=== PATIENT | female | born 1975 | race Hispanic/Latino ===

== ENCOUNTER 2017-07-26 14:51 | Outpatient (CLI) | payer OTHER | END 2017-07-26 14:52 | disposition home or self-care (01) | LOC: BICMAMMO 14:51 | PROVIDERS: ATTEND Physician Assistant | DX: Z12.31 Encounter for screening mammogram for malignant neoplasm of breast (principal); Z85.3 Personal history of malignant neoplasm of breast | CPT/HCPCS: 77063; 77067 ==

== ENCOUNTER 2017-12-15 07:18 | Day surgery (SDC) | payer OTHER ==
[~2017-12-15 07:18] MED LIST: Cyclopentolate 1% Opth Drop 2 ML BOT FS SCH; Fluorouracil 100 MG, EPINEPHrine 0.3 MG, Dextrose 50% 3 ML in Ophthalmic Irrigation Sol... FS SCH; Phenylephrine 2.5% Ophth Soln 5 ML BOT FS SCH
[2017-12-15] MEDS ORDERED: Cyclopentolate 1% Opth Drop 2 ML BOT ONE (07:48)
[2017-12-15] MEDS ORDERED: Phenylephrine 2.5% Ophth Soln 5 ML BOT ONE (07:48)
[2017-12-15] MEDS ORDERED: Insulin Regular 300 UNITS/3 ML VIAL ONE (08:34)
[2017-12-15] MEDS ORDERED: Fentanyl 100 MCG/2 ML VIAL ONE (09:11)
[2017-12-15] MEDS ORDERED: PROPOFOL 20 ML ONE (09:11)
[2017-12-15] MEDS ORDERED: Midazolam HCl 2 mg/2 ml Vial ONE (09:11)
[2017-12-15] MEDS ORDERED: Ondansetron HCl/PF 4 MG/2 ML Vial ONE (09:11)
--- NOTE | 2017-12-15 11:19 | OP ---
DATE OF PROCEDURE: 12/15/2017 PREOPERATIVE DIAGNOSIS: Tractional retinal detachment, right eye. POSTOPERATIVE DIAGNOSIS: Tractional retinal detachment, right eye. PROCEDURE: Pars plana vitrectomy, tractional retinal tear, right eye. SURGEON: Dr. Jacinto Rojas ANESTHESIA: Local with monitored anesthesia care. PROCEDURE IN DETAIL: The patient was identified in the preoperative holding area. Appropriate infor med consent for the planned surgical procedure on the right eye had been obtained. The patient was t ransported to the operative suite where appropriate cardiopulmonary monitoring established. Local an esthesia was obtained using retrobulbar and modified Van Lint lid block using 50 to give mixture of 4 % lidocaine, 0.75% bupivacaine. The patient was prepped and draped in the usual sterile manner for o phthalmic surgery on the right eye. Lid speculum was placed in the right eye. The 25-gauge trocars placed in conjunctiva and sclera supratemporally, inferotemporally, and supranasally. Infusion line was placed inferotemporally. Light pipe and vitreous cutter were inserted into the eye. Core vitrec sima was performed. Extensive elevation of the retina was identified. This was caused by traction o n the retinal surface from epiretinal membranes. These were carefully dissected away from the retina using end-gripping forceps and vitreous cutter clearing the entire posterior pole. No holes were id entified. Panretinal photocoagulation was placed into all non-macular areas of the retina. Trocars were removed. The eye was noted to retain pressure well. Retrobulbar Kenalog and subconjunctival An cef were placed. Atropine and antibiotic ointment placed, and the eye was patched and shielded. The patient was taken to the postoperative recovery unit in good condition having suffered no immediate perioperative period. DISCHARGE INSTRUCTIONS: The patient was instructed to keep patch and shield on, avoid lifting or tiffanie ding, and follow up in the morning with Dr. Rojas.
== END 2017-12-15 12:30 | disposition home or self-care (01) ==
LOC: SDC 07:18
PROVIDERS: ATTEND Ophthalmology Retina Specialist
PROC: 08T43ZZ Resection of Right Vitreous, Percutaneous Approach (ICD-10-PCS; principal; 2017-12-15)
DX: H33.42 Traction detachment of retina, left eye (principal); E11.9 Type 2 diabetes mellitus without complications; Z79.4 Long term (current) use of insulin; Z79.899 Other long term (current) drug therapy
CPT/HCPCS: 36416; 96372; J0171; J1815; J2250; J2405; J2704; J3010; J9190

== ENCOUNTER 2018-01-31 13:51 | Emergency (ER) | payer OTHER ==
[2018-01-31 15:14] LABS: #Basophils 0.1 thou/uL (0.0-0.2); #Eosinphils 0.2 thou/uL (0.0-0.7); #Lymphocytes 1.6 thou/uL (1.20-3.40); #Monocytes 0.5 thou/uL (0.11-0.59); #Neutrophils 7.1 thou/uL (1.40-6.50); %Basophils 0.6 % (0.0-1.0); %Eosinophils 1.9 % (0.0-10.0); %Monocytes 4.8 % (0.0-10.0); %Neutrophils 75.7 % (42.0-75.0); Hemoglobin 12.3 g/dL (12.0-16.0); Mean Corpuscular HGB CONC 32.8 g/dL (32.0-36.0); Mean Corpuscular Hemoglobin 31.7 pg (27.0-31.0); Mean Corpuscular Volume 96.6 fL (78.0-98.0); Mean Platelet Volume 8.5 fL (7.4-10.4); Platelet Count 540 thou/uL (130-400); RBC Distribution Width 11.7 % (11.5-14.5); Red Blood Cell (RBC) Count 3.88 mill/uL (4.20-5.40); White Blood Cell (WBC) Count 9.3 thou/uL (4.8-10.8)
[2018-01-31] MEDS ORDERED: Metoclopramide HCl 10 MG/2 ML VIAL ONE (15:19)
[2018-01-31] MEDS ORDERED: Ketorolac Tromethamine 30 MG/ML VIAL ONE (15:19)
[2018-01-31] MEDS ORDERED: diphenhydrAMINE 25 MG CAP ONE (15:24)
[2018-01-31 15:32] LABS: ALT (SGPT) 20 U/L (8-55); AST (SGOT) 17 U/L (5-34); Albumin 3.3 g/dL (3.5-5.0); Alkaline Phosphatase 73 U/L (40-150); Anion Gap 9 mmol/L (10-20); BUN (Urea Nitrogen) 17 mg/dL (7.0-18.7); Bilirubin, Total 0.9 mg/dL (0.2-1.2); Calc. Creatinine Clearance 0 mL/min (70-130); Calcium 9.4 mg/dL (7.8-10.44); Carbon Dioxide 27 mmol/L (22-29); Chloride 108 mmol/L (98-107); Estimated GFR-MDRD 50; Globulin 3.4 g/dL (2.4-3.5); Glucose 211 mg/dL (70-105); Potassium 3.9 mmol/L (3.5-5.1); Protein, Total 6.7 g/dL (6.0-8.3); Sodium 140 mmol/L (136-145)
[2018-01-31] MEDS ORDERED: Magnesium 2 GM/50 ML BAG (IN WATER) ONE (16:57)
== END 2018-01-31 19:10 | disposition home or self-care (01) ==
LOC: ERS 13:51
DX: B34.9 Viral infection, unspecified (principal); R51 Headache; I10 Essential (primary) hypertension; E11.9 Type 2 diabetes mellitus without complications; F32.9 Major depressive disorder, single episode, unspecified; Z79.4 Long term (current) use of insulin
CPT/HCPCS: 36415; 80053; 82010; 85025; 87081; 87430; 87804; 96365; 96366; 96368; 96375; J1885; J2765

== ENCOUNTER 2018-07-27 09:01 | Outpatient (CLI) | payer OTHER ==
--- NOTE | 2018-07-27 09:52 | MMO ---
Bilateral MAMMO Bilat Screen DDI+BABS. CLINICAL HISTORY: Patient is 43 years old and is seen for screening. The patient has the following family history of breast cancer: niece, at age 32. The patient has no personal history of cancer. VIEWS: The views performed were: bilateral craniocaudal with tomosynthesis and bilateral mediolateral oblique with tomosynthesis. FILMS COMPARED: The present examination has been compared to prior imaging studies performed at [facility] on 07/05/2016 and 07/26/2017. MAMMOGRAM FINDINGS: The breasts are heterogeneously dense, which could obscure a lesion on mammography. There are no suspicious masses, suspicious calcifications, or new areas of architectural distortion. IMPRESSION: THERE IS NO MAMMOGRAPHIC EVIDENCE OF MALIGNANCY. A ROUTINE FOLLOW-UP MAMMOGRAM IN 1 YEAR IS RECOMMENDED. THE RESULTS OF THIS EXAM WERE SENT TO THE PATIENT. ACR BI-RADS Category 1 - Negative MAMMOGRAPHY NOTE: 1. A negative mammogram report should not delay a biopsy if a dominant of clinically suspicious mass is present. 2. Approximately 10% to 15% of breast cancers are not detected by mammography. 3. Adenosis and dense breasts may obscure an underlying neoplasm.
== END 2018-07-27 09:02 | disposition home or self-care (01) ==
LOC: BICMAMMO 09:01
DX: Z12.31 Encounter for screening mammogram for malignant neoplasm of breast (principal); Z80.3 Family history of malignant neoplasm of breast
CPT/HCPCS: 77063; 77067

== ENCOUNTER 2018-08-17 20:29 | Inpatient (IN) | payer OTHER ==
[2018-08-17 21:04] LABS: Bilirubin Negative (Negative); Blood, Urine Trace (Negative); Clarity CLEAR (Clear); Glucose, Urine (Dipstick) 250 mg/dL (Negative); Leukocyte Negative (Negative); Nitrite Negative (Negative); Protein, Urine (Dipstick) > or equal to 300 mg/dL (Neg-Trace); Specific Gravity, Urine 1.015 (1.002-1.036); Urobilinogen 0.2 mg/dL (0.2-1.0); pH, Urine 7.5 (5.0-9.0)
[2018-08-17 21:06] LABS: Bacteria/HPF None Seen HPF (None Seen); Hyaline Casts/LPF 7-10 HYALINE CAST LPF (0-3 Hyaline); Pathc Cast-AUWi Flag 1.49 (0-2.49); WBC/HPF 0-3 HPF (0-3)
[2018-08-17 21:22] LABS: Hemoglobin 10.9 g/dL (12.0-16.0); Mean Corpuscular HGB CONC 32.6 g/dL (32.0-36.0); Mean Corpuscular Hemoglobin 31.5 pg (27.0-31.0); Mean Corpuscular Volume 96.7 fL (78.0-98.0); Mean Platelet Volume 8.1 fL (7.4-10.4); Platelet Count 617 thou/uL (130-400); RBC Distribution Width 12.2 % (11.5-14.5); Red Blood Cell (RBC) Count 3.45 mill/uL (4.20-5.40); White Blood Cell (WBC) Count 21.5 thou/uL (4.8-10.8)
[2018-08-17 21:34] LABS: ALT (SGPT) 18 U/L (8-55); AST (SGOT) 18 U/L (5-34); Albumin 3.3 g/dL (3.5-5.0); Alkaline Phosphatase 85 U/L (40-150); Anion Gap 12 mmol/L (10-20); BUN (Urea Nitrogen) 22 mg/dL (7.0-18.7); Bilirubin, Total 0.7 mg/dL (0.2-1.2); Calc. Creatinine Clearance 0 mL/min (70-130); Carbon Dioxide 21 mmol/L (22-29); Chloride 107 mmol/L (98-107); Estimated GFR-MDRD 37; Globulin 3.6 g/dL (2.4-3.5); Glucose 192 mg/dL (70-105); Potassium 4.5 mmol/L (3.5-5.1); Protein, Total 6.9 g/dL (6.0-8.3); Sodium 135 mmol/L (136-145)
--- NOTE | 2018-08-17 21:35 | RAD ---
Portable frontal chest radiograph: 08/17/2018 COMPARISON: 09/09/2016 HISTORY: Fever FINDINGS: Lungs are clear. Heart and mediastinal contours appear within normal limits. IMPRESSION: No acute findings.
[2018-08-17 21:48] LABS: Band 9 % (5-11); Lymphocytes 15 % (21-51); MDiff Complete? YES; Monocytes 2 % (0-10); Neutrophil 74 % (42-75); Platelet Morphology Comment Appears Increased; RBC Morphology Normal
[2018-08-17] MEDS ORDERED: Piperacillin/Tazobactam 3.375 GM VIAL ONE (21:52)
[2018-08-17 22:06] LABS: Amphetamine Not Detected (NotDetected); Barbiturates Screen Not Detected (NotDetected); Benzodiazepine Screen Not Detected (NotDetected); Cocaine Metabolite Screen Not Detected (NotDetected); Medtox Control Line Valid? VALID (VALID); Medtox Reader # READER 1; Methadone Not Detected (NotDetected); Methamphetamine Not Detected (NotDetected); Opiate Screen Not Detected (NotDetected); Oxycodone Screen Not Detected (NotDetected); Phencyclidine (PCP) Not Detected (NotDetected); THC/Cannabinoid Screen Not Detected (NotDetected); Tricyclic Screen Not Detected (NotDetected)
[2018-08-17] MEDS ORDERED: Bisacodyl 5 MG TAB PO PRN (22:46)
[2018-08-17] MEDS ORDERED: Dextrose 5% in Water 1,000 ML IV PRN (22:48)
[2018-08-17] MEDS ORDERED: Dextrose 50% Abboject 50 ML SYRINGE SLOW IVP PRN (22:48)
--- NOTE | 2018-08-17 23:37 | CT ---
CT of abdomen and pelvis: 08/17/2018 COMPARISON: None HISTORY: Leukocytosis, cirrhosis, osteoporosis TECHNIQUE: Axial CT imaging at 5 mm intervals from lung bases through pubic symphysis without contras t. Coronal reformatted imaging obtained. FINDINGS: Lack of contrast media limits assessment of the viscera, bowel, vascular structures, and fo r lymphadenopathy. The visualized lung bases are unremarkable. No free intraperitoneal air noted. Postoperative clip in right upper quadrant suggest prior cholecystectomy. Limited assessment of the l iver is grossly unremarkable. The spleen is nonvisualized, presumably on the basis of surgical absence. Adrenal glands and kidneys demonstrate no acute findings. There is an ill-defined nature of the pancreas with mild stranding of the peripancreatic fat in the region of the head and body. In addition, there is mild diffuse stranding of the mesenteric fat, which may be inflammatory in nature, seen throughout the abdomen and pelvis. The uterus appears surgically absent. There is trace free fluid in the pelvic cul-de-sac. There is mild urinary bladder wall prominence, which may signify urin lisa bladder inflammatory change. There is mild diffuse wall thickening of the colon which could signify colitis or edematous change on the basis of a systemic process. There is small volume free fluid in bilateral paracolic gutters. Distal esophagus is mildly thick-walled which may signify inflammatory change or underdistention. The appendix appears unremarkable. There is no evidence for bowel obstruction. There is no evidence f or obstructive uropathy. Review of the osseous structures demonstrates no worrisome lytic or blastic lesion. IMPRESSION: There is diffuse stranding of the mesenteric fat and there is small volume free fluid wit hin the abdomen/pelvis. The provided history reports recent diagnosis of the liver disease and thus, these findings may be the result of systemic process. On the basis of this examination is diff icult to exclude inflammatory change involving the colon, the pancreas, and/or the urinary bladder given lack of IV and oral contrast. Postoperative changes as detailed above.
[2018-08-17] MEDS: Sodium Chloride 0.9% 1,000 ML IV SCH (23:42)
[2018-08-18 00:18] VITALS: BMI 23.9
[2018-08-18] MEDS: Vancomycin HCl 1 GM in Premix Bag 1 BAG IVPB SCH (01:08)
[2018-08-18] MEDS: Ondansetron PF 4 MG/2 ML Vial IVP PRN ×2 (01:50→08:47)
[2018-08-18] MEDS: Piperacillin/Tazobactam 3.375 GM in Sodium Chloride 0.9% 100 ML IVPB SCH ×4 (04:16→21:19)
--- NOTE | 2018-08-18 05:21 | HP ---
CHIEF COMPLAINT: Fever and generalized weakness. HISTORY OF PRESENT ILLNESS: The patient is a 43-year-old female with past medical history of recently diagnosed cirrhosis of unknown etiology, diabetes, hypertension, fibromyalgia, who presents to the hospital with complaints of generalized weakness, chills and fever. The patient stated that for the past couple of days she has been feeling very tired. However, today she appeared to be more confused to her , felt very warm and had some chills. At this time, her brought her into the hospital for further evaluation. The patient at this time was found to have a fever of 101, and also was found to be tachycardic. She was given some IV fluids and also was given broad-spectrum antibiotics in the ER. The patient denies any nausea, vomiting, or any diarrhea. She denies any shortness of breath, any chest pain or chest pressure. She denies taking any recent medications. She was hospitalized at [facility] about 2 to 3 weeks ago, and that is when she was diagnosed with a new diagnosis of cirrhosis. The patient was sent as an outpatient for paracentesis. However, due to limited fluid, her paracentesis was canceled. PAST MEDICAL HISTORY: She has a history of 1. Hypertension. 2. Diabetes. 3. Fibromyalgia. 4. Cirrhosis of the liver. 5. Osteoporosis. PAST SURGICAL HISTORY: She has had a tubal ligation. She has had a cholecystectomy. She has had a splenectomy. She had a hysterectomy. FAMILY HISTORY: Father has a history of heart disease. SOCIAL HISTORY: She denies any alcohol use, smoking history, or any recreational drug use. She is currently a full code and lives with her family. REVIEW OF SYSTEMS: All negative except for the ones mentioned above in the HPI. PHYSICAL EXAMINATION: VITAL SIGNS: Temperature of 98.4, pulse of 94, 96% on room air, blood pressure 141/84. GENERAL: She is awake, alert, and oriented x3. Does not appear in any distress. HEENT: Normocephalic, atraumatic. No lymphadenopathy noted. Pupils are equal and reactive to light. CV: S1, S2 present. No murmurs, rubs, or gallops. LUNGS: Clear to auscultation. No rhonchi or wheezes noted. ABDOMEN: Soft. Bowel sounds are present x2. Some pain upon palpation to her right lower quadrant. EXTREMITIES: Lower extremities, mild pitting +1 edema. NEUROVASCULAR: No focal deficits noted. SKIN: No cuts, lesions, or bruises noted. LABORATORY RESULTS: As of the following; WBC of 21.5, hemoglobin of 10.9, hematocrit of 33.4, platelets of 617. Chemistry; sodium of 135, potassium of 4.5, BUN of 22, creatinine of 1.53. She did have a chest x-ray which did not indicate any acute processes. Her urine did not indicate any significant bacteremia. CT of abdomen and pelvis indicated diffuse stranding of the mesenteric fat. ASSESSMENT AND PLAN: The patient is a very pleasant 43-year-old female who presents to the hospital with complaints of generalized weakness and fever. 1. Sepsis, unclear etiology. The patient's UA and chest x-ray does not appear to have any acute processes noted. CT abdomen and pelvis did indicate mesenteric stranding. I will order an ESR, CRP. The patient also was recently diagnosed with liver disease. However, again the etiology is unclear. I will start her on some broad-spectrum antibiotics. She does not have any diarrhea, however, she did have some mild abdominal pain. Continue to monitor. Tylenol p.r.n. for fever. Blood cultures have been drawn and sent. 2. Leukocytosis, most likely secondary to underlying infection. We will continue broad-spectrum antibiotics and continue to monitor. 3. Acute kidney injury. We will start the patient on some mild hydration, most likely this is prerenal. We will also hydrate her with some gentle fluids. If her creatinine does not improve, may consider getting nephrology consult. CT of abdomen and pelvis did not indicate any obstructive uropathy. 4. Diabetes. We will check her Accu-Cheks before meals and at bedtime and start her on sliding scale insulin. 5. History of liver disease. The patient states that she had a recent workup which including the hepatitis panel was checked at [facility]. I will get records to avoid retesting. Also, she was supposed to follow up with GI as an outpatient. 6. Cervical pain. The patient states that she has at times had balancing issues and also has had at times incontinence. She had a recent MRI done at [facility] of her cervical spine that indicated cervical stenosis. Currently, the patient denies any significant numbness or tingling. However, we will get records for further evaluation. 7. Deep venous thrombosis prophylaxis. We will put the patient on SCDs or subcu heparin. Job ID: [id number]
[2018-08-18] MEDS: HumaLOG 300 UNITS/3 ML VIAL SC PRN ×2 (05:49→11:56)
[2018-08-18 06:52] LABS: #Basophils 0.1 thou/uL (0.0-0.2); #Eosinphils 0.3 thou/uL (0.0-0.7); #Lymphocytes 2.5 thou/uL (1.20-3.40); #Monocytes 0.9 thou/uL (0.11-0.59); #Neutrophils 12.5 thou/uL (1.40-6.50); %Basophils 0.6 % (0.0-1.0); %Eosinophils 1.6 % (0.0-10.0); %Lymphocytes 15.3 % (21.0-51.0); %Monocytes 5.7 % (0.0-10.0); %Neutrophils 76.8 % (42.0-75.0); Hemoglobin 10.4 g/dL (12.0-16.0); Mean Corpuscular HGB CONC 33.4 g/dL (32.0-36.0); Mean Corpuscular Hemoglobin 32.5 pg (27.0-31.0); Mean Corpuscular Volume 97.4 fL (78.0-98.0); Mean Platelet Volume 8.8 fL (7.4-10.4); Platelet Count 599 thou/uL (130-400); RBC Distribution Width 12.2 % (11.5-14.5); Red Blood Cell (RBC) Count 3.21 mill/uL (4.20-5.40); White Blood Cell (WBC) Count 16.2 thou/uL (4.8-10.8)
[2018-08-18 07:11] LABS: Anion Gap 10 mmol/L (10-20); BUN (Urea Nitrogen) 21 mg/dL (7.0-18.7); CRP (Inflammatory) 2.61 mg/dL (= or < 0.5); Calc. Creatinine Clearance 43 mL/min (70-130); Calcium 8.4 mg/dL (7.8-10.44); Carbon Dioxide 22 mmol/L (22-29); Chloride 108 mmol/L (98-107); Estimated GFR-MDRD 36; Glucose 212 mg/dL (70-105); Potassium 4.2 mmol/L (3.5-5.1); Sodium 136 mmol/L (136-145)
[2018-08-18] MEDS: Ferrous Sulfate 325 MG TAB PO SCH (08:38)
[2018-08-18] MEDS: Heparin 5,000 UNITS/ML VIAL SC SCH ×3 (08:38→21:19)
[2018-08-18 09:33] LABS: Prothrombin Time 13.2 SEC (12.0-14.7)
[2018-08-18 09:34] LABS: PTT 35.1 SEC (22.9-36.1)
[2018-08-18] MEDS: Sodium Chloride 0.9% 1,000 ML IV SCH (11:37)
--- NOTE | 2018-08-18 13:43 | PDOC.PN ---
- Subjective Encounter Start Date: 08/18/18 Encounter Start Time: 12:45 Subjective: no further fever, feels better today -: no abd pain or nausea -: she had been to [facility] ER this week and has seen GI doc Yousef? at [facility] - Objective Resuscitation Status - Order Detail: 08/17/18 22:46 Resuscitation Status Routine Resuscitation Status: FULL: Full Resuscitation MAR Reviewed: Yes Vital Signs & Weight: Vital Signs (12 hours) Temp Pulse Resp BP Pulse Ox 08/18/18 12:18 98.1 F 89 18 157/90 H 97 08/18/18 08:35 98 08/18/18 08:10 97.9 F 83 16 134/81 98 08/18/18 04:22 98.0 F 84 20 128/78 95 08/18/18 02:00 98.2 F 94 96 Weight Weight 126 lb 11.2 oz I&O: 08/17/18 08/18/18 08/19/18 06:59 06:59 06:59 Intake Total 1225 Balance 1225 Result Diagrams: 08/18/18 05:52 08/18/18 05:52 Additional Labs: Accuchecks 08/18/18 08/18/18 08/17/18 11:37 05:00 23:40 POC Glucose 184 H 231 H 150 H Phys Exam - Physical Examination HEENT: PERRLA, moist MMs Neck: no JVD, supple Respiratory: no wheezing, no rales Cardiovascular: RRR, no significant murmur Gastrointestinal: soft, non-tender, positive bowel sounds mild distention ?ascites Musculoskeletal: no edema, pulses present Neurological: non-focal, moves all 4 limbs Psychiatric: normal affect, A&O x 3 Dx/Plan (1) Sepsis Code(s): A41.9 - SEPSIS, UNSPECIFIED ORGANISM Status: Acute Qualifiers: Sepsis type: sepsis due to unspecified organism Qualified Code(s): A41.9 - Sepsis, unspecified organism (2) Cirrhosis Code(s): K74.60 - UNSPECIFIED CIRRHOSIS OF LIVER Status: Acute Qualifiers: Hepatic cirrhosis type: unspecified hepatic cirrhosis Ascites presence: unspecified Qualified Code(s): K74.60 - Unspecified cirrhosis of liver (3) CKD (chronic kidney disease) stage 2, GFR 60-89 ml/min Code(s): N18.2 - CHRONIC KIDNEY DISEASE, STAGE 2 (MILD) Status: Chronic (4) HTN (hypertension) Code(s): I10 - ESSENTIAL (PRIMARY) HYPERTENSION Status: Chronic Qualifiers: Hypertension type: essential hypertension Qualified Code(s): I10 - Essential (primary) hypertension (5) Anemia Code(s): D64.9 - ANEMIA, UNSPECIFIED Status: Chronic Comment: chronic (6) Diabetes type 2, controlled Code(s): E11.9 - TYPE 2 DIABETES MELLITUS WITHOUT COMPLICATIONS Status: Chronic Qualifiers: Diabetes mellitus group home insulin use: without manager long term care use Diabetes mellitus complication status: with unspecified complications Qualified Code(s) : E11.8 - Type 2 diabetes mellitus with unspecified complications - Plan prelim blood cs -ve -: is on vanc and zosyn, iv fluids -: continue home meds cardizem, feso4 -: had recent usg abd which did not reveal drainable ascites/work up per pt -: d/w , will see pt * . Review of Systems - Medications/Allergies Allergies/Adverse Reactions: Allergies Allergy/AdvReac Type Severity Reaction Status Date / Time No Known Allergies Allergy Verified 08/18/18 00:48 Medications: Current Medications Bisacodyl (Dulcolax) 10 mg PO DAILYPRN PRN PRN Reason: Constipation Cholecalciferol (Vitamin D3) 2,000 units PO DAILY ON LICENSE OF [facility] Last Admin: 08/18/18 08:38 Dose: 2,000 units Dextrose/Water (Dextrose 50%) 25 gm SLOW IVP PRN PRN PRN Reason: Hypoglycemia Diltiazem HCl (Cardizem Cd) 180 mg PO DAILY ON LICENSE OF [facility] Last Admin: 08/18/18 08:38 Dose: 180 mg Ferrous Sulfate (Feosol) 325 mg PO DAILY ON LICENSE OF [facility] Last Admin: 08/18/18 08:38 Dose: 325 mg Glucagon (Glucagon) 1 mg IM PRN PRN PRN Reason: Hypoglycemia Heparin Sodium (Porcine) (Heparin) 5,000 units SC TID ON LICENSE OF [facility] Last Admin: 08/18/18 08:38 Dose: 5,000 units Dextrose/Water (D5w) 1,000 mls @ 0 mls/hr IV .Q0M PRN PRN Reason: Hypoglycemia Sodium Chloride (Normal Saline 0.9%) 1,000 mls @ 75 mls/hr IV .[id number] ON LICENSE OF [facility] Last Admin: 05/17/19 11:37 Dose: Not Given Piperacillin Sod/Tazobactam (Sod 3.375 gm/ Sodium Chloride) 100 mls @ 200 mls/ hr IVPB 0400,1000,1600,2200 ON LICENSE OF [facility] Last Admin: 08/18/18 10:39 Dose: 100 mls Vancomycin HCl 1 gm/ Device 200 mls @ 200 mls/hr IVPB Q24HR ON LICENSE OF [facility] Last Admin: 08/18/18 01:08 Dose: 200 mls Insulin Human Lispro (Humalog) 0 units SC .MILD SLIDING SCALE PRN PRN Reason: Mild Correctional Scale Last Admin: 08/18/18 11:56 Dose: 2 unit Miscellaneous Medication (Pharmacy To Dose) 1 each IVPB PRN PRN PRN Reason: Pharmacy to dose Ondansetron HCl (Zofran) 4 mg IVP Q6H PRN PRN Reason: Nausea/Vomiting Last Admin: 08/18/18 08:47 Dose: 4 mg Senna/Docusate Sodium (Senokot S) 2 tab PO BIDPRN PRN PRN Reason: Constipation Sodium Chloride (Flush - Normal Saline) 10 ml IVF Q12HR ON LICENSE OF [facility] Last Admin: 08/18/18 08:39 Dose: Not Given Sodium Chloride (Flush - Normal Saline) 10 ml IVF PRN PRN PRN Reason: Saline Flush
[2018-08-18 17:42] LABS: HBCM Index 0.06 S/CO (0-0.79); HBSAg Index 0.37 S/CO (0-0.99); Hep A IgM AB Non-Reactive (NonReactive); Hep A IgM S/CO 0.18 S/CO (0-0.79); Hep B Surf Ag Non-Reactive S/CO (NonReactive); Hep C IgG Ab Non-Reactive (NonReactive); Hep C Index 0.09 S/CO (0-0.79); Hepatitis B Core IgM Abs Non-Reactive (NonReactive)
[2018-08-18] MEDS: Senokot S 8.6-50 MG TAB PO PRN (21:30)
[2018-08-19] MEDS: Vancomycin HCl 1 GM in Premix Bag 1 BAG IVPB SCH (02:07)
[2018-08-19] MEDS: Piperacillin/Tazobactam 3.375 GM in Sodium Chloride 0.9% 100 ML IVPB SCH ×4 (05:54→22:08)
[2018-08-19 06:02] LABS: Cardiac Risk 3.2 (Less than 4.5)
[2018-08-19] MEDS: Heparin 5,000 UNITS/ML VIAL SC SCH ×3 (08:18→20:14)
[2018-08-19] MEDS: Ferrous Sulfate 325 MG TAB PO SCH (08:18)
--- NOTE | 2018-08-19 09:01 | ULT ---
HEPATIC ULTRASOUND WITH HEPATIC DOPPLER: INDICATION: Question cirrhosis. Portable hypertension changes on CT. The patient is post cholecystectomy and splenectomy. Correlation is made to the noncontrast CT abdomen and pelvis 08/17/2018. The liver is very heterogeneous by ultrasound. The liver appeared homogeneous on the recent CT which was a nonenhanced study. A small amount of ascites is seen around the liver margin. The common bile duct is measured at 6 mm, which is within normal range for post cholecystectomy statu s. The pancreas is partially imaged and appears unremarkable as visualized. The right kidney is imaged and appears unremarkable. Doppler studies show normal blood flow in the portal veins and hepatic veins. The visualized aorta and IVC appear unremarkable. IMPRESSION: 1. Small volume ascites is noted. 2. Heterogeneous liver. 3. Doppler shows normal blood flow in the hepatic veins and portal veins. POS: OFF
--- NOTE | 2018-08-19 11:48 | PRG ---
DATE OF SERVICE: 08/19/2018 SUBJECTIVE: Ms. Becerra feels well. She has had no fever overnight. She is eating and drinking fine. She had an ultrasound, which showed heterogeneous liver, scant perihepatic fluid, and normal flow in her portal vessels and patent hepatic vein. OBJECTIVE: VITAL SIGNS: Temperature is 98, pulse 76, and blood pressure 146/83. ABDOMEN: Soft and nontender. There is no rebound or guarding. LABORATORY STUDIES: Today none except for triglycerides 154 and hepatitis A, B, and C serologies yesterday were negative. Microbiology, respiratory virus panel is negative. Blood cultures, one of two bottles shows coag-negative staph. Urine cultures mixed skin monse. ASSESSMENT: 1. History of cirrhosis per physician from [facility]. Does not seem she has had a liver biopsy. She is not sure of any etiology. Here, her liver function tests are normal. Her albumin is slightly low. Imaging noncontrast CT shows a heterogeneous liver, but no nodularity. Ultrasound shows a heterogeneous liver, but no nodularity and normal flow in the portal and hepatic veins. 2. Febrile illness with confusion, now resolved. 3. One of two blood cultures positive for coagulase-negative Staphylococcus. It is unclear if that may be a contaminant. She has no skin lesions. RECOMMENDATIONS: 1. From a liver standpoint, I have recommended that she follow up with her medical psychotherapist and liver doctor at [facility], where her care is and may request a liver biopsy to ensure if she really has cirrhosis or not and make a diagnosis of the etiology. 2. We can and start her on a low-salt diet. We will follow from a distance. If I can be of further assistance in her care, please do not hesitate to contact me. Job ID: [id number]
--- NOTE | 2018-08-19 12:15 | PDOC.PN ---
- Subjective Encounter Start Date: 08/19/18 Encounter Start Time: 12:13 Patient seen and examined, all questions answered. - Objective Resuscitation Status - Order Detail: 08/17/18 22:46 Resuscitation Status Routine Resuscitation Status: FULL: Full Resuscitation Vital Signs & Weight: Vital Signs (12 hours) Temp Pulse Resp BP Pulse Ox 08/19/18 11:34 96 08/19/18 07:59 98 F 76 16 147/83 H 96 08/19/18 04:00 98.5 F 78 16 151/89 H 97 08/19/18 00:26 98.4 F 77 16 127/77 96 Weight Weight 126 lb 11.2 oz I&O: 08/18/18 08/19/18 08/20/18 06:59 06:59 06:59 Intake Total 1225 2150 Balance 1225 2150 Result Diagrams: 08/18/18 05:52 08/18/18 05:52 Additional Labs: Accuchecks 08/19/18 08/18/18 08/18/18 11:42 20:12 16:43 POC Glucose 210 H 208 H 163 H Phys Exam - Physical Examination Constitutional: NAD HEENT: PERRLA, moist MMs, sclera anicteric Neck: no nodes, no JVD, supple Respiratory: no wheezing, no rales, no rhonchi Cardiovascular: RRR, no significant murmur, no rub Gastrointestinal: soft, non-tender, no distention Musculoskeletal: no edema, pulses present Dx/Plan (1) Cirrhosis Code(s): K74.60 - UNSPECIFIED CIRRHOSIS OF LIVER Status: Acute Qualifiers: Hepatic cirrhosis type: unspecified hepatic cirrhosis Ascites presence: unspecified Qualified Code(s): K74.60 - Unspecified cirrhosis of liver (2) CKD (chronic kidney disease) stage 2, GFR 60-89 ml/min Code(s): N18.2 - CHRONIC KIDNEY DISEASE, STAGE 2 (MILD) Status: Chronic (3) HTN (hypertension) Code(s): I10 - ESSENTIAL (PRIMARY) HYPERTENSION Status: Chronic Qualifiers: Hypertension type: essential hypertension Qualified Code(s): I10 - Essential (primary) hypertension (4) Right upper lobe pneumonia Code(s): J18.9 - PNEUMONIA, UNSPECIFIED ORGANISM Status: Acute Comment: community acquired pneumonia, likely pneumococcus (5) Sepsis Code(s): A41.9 - SEPSIS, UNSPECIFIED ORGANISM Status: Acute Qualifiers: Sepsis type: sepsis due to unspecified organism Qualified Code(s): A41.9 - Sepsis, unspecified organism (6) Anemia Code(s): D64.9 - ANEMIA, UNSPECIFIED Status: Chronic Comment: chronic (7) Diabetes type 2, controlled Code(s): E11.9 - TYPE 2 DIABETES MELLITUS WITHOUT COMPLICATIONS Status: Chronic Qualifiers: Diabetes mellitus alf insulin use: without bed bug exterminator use Diabetes mellitus complication status: with unspecified complications Qualified Code(s) : E11.8 - Type 2 diabetes mellitus with unspecified complications - Plan * abd US pending * GI evaluation pending * unclear if she has cirrhosis or it was a false positive on imaging study at [facility], will await repeat US image here today * liver function markers appear normal (INR, Platelets, Albumin, bilirubin) * BP stable * cont abx for now * will await work up results and adjust plan accordingly * case and plan d/w patient and family at length, they understood and agreed with this plan.
[2018-08-19] MEDS: Senokot S 8.6-50 MG TAB PO PRN (12:30)
[2018-08-19] MEDS: HumaLOG 300 UNITS/3 ML VIAL SC PRN ×2 (12:33→15:58)
[2018-08-19 16:07] LABS: ANA Symphony (Qualitative) Negative (Negative); ANA Symphony (Quantitative) 0.1 Ratio (< 0.7 Negative); dsDNA IgG Antibody 2.5 IU/mL (<10 Negative)
[2018-08-20 01:32] LABS: Vancomycin, Trough 17.8 ug/mL
[2018-08-20] MEDS: Vancomycin HCl 1 GM in Premix Bag 1 BAG IVPB SCH (02:04)
[2018-08-20] MEDS: Piperacillin/Tazobactam 3.375 GM in Sodium Chloride 0.9% 100 ML IVPB SCH ×4 (04:49→21:05)
[2018-08-20] MEDS: HumaLOG 300 UNITS/3 ML VIAL SC PRN ×2 (04:53→11:56)
[2018-08-20 06:39] LABS: #Basophils 0.1 thou/uL (0.0-0.2); #Eosinphils 0.6 thou/uL (0.0-0.7); #Lymphocytes 3.2 thou/uL (1.20-3.40); #Monocytes 0.8 thou/uL (0.11-0.59); #Neutrophils 5.9 thou/uL (1.40-6.50); %Basophils 1.1 % (0.0-1.0); %Eosinophils 5.8 % (0.0-10.0); %Lymphocytes 30.1 % (21.0-51.0); %Monocytes 7.5 % (0.0-10.0); %Neutrophils 55.5 % (42.0-75.0); Hemoglobin 9.8 g/dL (12.0-16.0); Mean Corpuscular HGB CONC 32.6 g/dL (32.0-36.0); Mean Corpuscular Hemoglobin 32.4 pg (27.0-31.0); Mean Corpuscular Volume 99.1 fL (78.0-98.0); Mean Platelet Volume 8.3 fL (7.4-10.4); Platelet Count 556 thou/uL (130-400); RBC Distribution Width 12.3 % (11.5-14.5); Red Blood Cell (RBC) Count 3.04 mill/uL (4.20-5.40); White Blood Cell (WBC) Count 10.5 thou/uL (4.8-10.8)
[2018-08-20 07:06] LABS: Anion Gap 9 mmol/L (10-20); BUN (Urea Nitrogen) 15 mg/dL (7.0-18.7); Calc. Creatinine Clearance 40 mL/min (70-130); Calcium 8.5 mg/dL (7.8-10.44); Carbon Dioxide 21 mmol/L (22-29); Chloride 111 mmol/L (98-107); Estimated GFR-MDRD 34; Glucose 138 mg/dL (70-105); Potassium 3.7 mmol/L (3.5-5.1); Sodium 137 mmol/L (136-145)
[2018-08-20] MEDS: Ferrous Sulfate 325 MG TAB PO SCH (08:03)
[2018-08-20] MEDS: Calcium Carbonate 500 MG ChewTAB PO SCH (08:03)
[2018-08-20] MEDS: Heparin 5,000 UNITS/ML VIAL SC SCH ×3 (08:04→21:03)
--- NOTE | 2018-08-20 11:52 | PDOC.PN ---
- Subjective Encounter Start Date: 08/20/18 Encounter Start Time: 11:52 Patient seen and examined, no new issues or complaints, all questions answered. - Objective Resuscitation Status - Order Detail: 08/17/18 22:46 Resuscitation Status Routine Resuscitation Status: FULL: Full Resuscitation Vital Signs & Weight: Vital Signs (12 hours) Temp Pulse Resp BP Pulse Ox 08/20/18 11:34 98.3 F 92 18 162/98 H 97 08/20/18 08:00 96 08/20/18 07:42 97.9 F 84 18 162/100 H 96 Weight Weight 126 lb 11.2 oz I&O: 08/19/18 08/20/18 08/21/18 06:59 06:59 06:59 Intake Total 2150 1760 Balance 2150 1760 Result Diagrams: 08/20/18 06:16 08/20/18 06:16 Additional Labs: Accuchecks 08/20/18 08/20/18 08/19/18 08:04 04:15 20:06 POC Glucose 89 181 H 114 H 08/19/18 15:42 POC Glucose 188 H Phys Exam - Physical Examination Constitutional: NAD HEENT: PERRLA, moist MMs, sclera anicteric Neck: no nodes, no JVD, supple Respiratory: no wheezing, no rales, no rhonchi Cardiovascular: RRR, no significant murmur, no rub Gastrointestinal: soft, non-tender, no distention Musculoskeletal: no edema, pulses present Dx/Plan (1) Cirrhosis Code(s): K74.60 - UNSPECIFIED CIRRHOSIS OF LIVER Status: Acute Qualifiers: Hepatic cirrhosis type: unspecified hepatic cirrhosis Ascites presence: unspecified Qualified Code(s): K74.60 - Unspecified cirrhosis of liver (2) CKD (chronic kidney disease) stage 2, GFR 60-89 ml/min Code(s): N18.2 - CHRONIC KIDNEY DISEASE, STAGE 2 (MILD) Status: Chronic (3) HTN (hypertension) Code(s): I10 - ESSENTIAL (PRIMARY) HYPERTENSION Status: Chronic Qualifiers: Hypertension type: essential hypertension Qualified Code(s): I10 - Essential (primary) hypertension (4) Right upper lobe pneumonia Code(s): J18.9 - PNEUMONIA, UNSPECIFIED ORGANISM Status: Acute Comment: community acquired pneumonia, likely pneumococcus (5) Sepsis Code(s): A41.9 - SEPSIS, UNSPECIFIED ORGANISM Status: Acute Qualifiers: Sepsis type: sepsis due to unspecified organism Qualified Code(s): A41.9 - Sepsis, unspecified organism (6) Anemia Code(s): D64.9 - ANEMIA, UNSPECIFIED Status: Chronic Comment: chronic (7) Diabetes type 2, controlled Code(s): E11.9 - TYPE 2 DIABETES MELLITUS WITHOUT COMPLICATIONS Status: Chronic Qualifiers: Diabetes mellitus terminal system operator insulin use: without jail use Diabetes mellitus complication status: with unspecified complications Qualified Code(s) : E11.8 - Type 2 diabetes mellitus with unspecified complications - Plan * blood culture 1/2 positive, patient had a WBC count of 21 at time of admission * no other source of infection noted for now * will repeat blood cultures * cont current abx * GI following * consult ID as well * case and plan d/w patient at length, she understood and agreed with this plan.
[2018-08-20] MEDS ORDERED: Amlodipine 5 MG TAB PO SCH (13:45)
--- NOTE | 2018-08-20 14:04 | PRG ---
DATE OF SERVICE: 08/20/2018 SUBJECTIVE: Ms. Becerra feels well. She has had no fever overnight. OBJECTIVE: VITAL SIGNS: T-max since admission has been 98.6. Last night it was 98.3, pulse 92, blood pressure 162/98. GENERAL: She feels wells. She looks alert, oriented. She is in no distress. ABDOMEN: Soft, nontender with no palpable hepatosplenomegaly. EXTREMITIES: No clubbing, cyanosis, or edema. ABDOMEN: Nontender. LABORATORY DATA: White count is 10.5, hemoglobin 9.8, platelet count 556. Sodium 137, potassium 3.7, BUN and creatinine are 15 and 1.67. Procalcitonin 0.09. Sed rate was 78 on 08/18. Blood cultures, coagulase-negative Staph in 1 of 2 bottles from the . Urine negative. Respiratory virus panel negative. Chest x-ray negative on admission. ASSESSMENT: 1. The patient reportedly has history of cirrhosis. It appears to be compensated. The etiology is unclear. This is being worked up at [facility] with her gastroenterology doctor there. That is where her primary care doctors are as well. Here on imaging, there is no overt signs of cirrhosis only a hertogenous appearing liver. She appears to have compensated function. Hepatitis A, B, and C are negative. An GREG was negative. Her liver function tests were normal. 2. Thrombocytosis. This seems to have been present for some time, may be related to previous splenectomy. 3. 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 4. Recent ultrasound here shows a heterogeneous liver with no evidence of portal hypertensive changes on Doppler studies. 5. Fever on admission. This has resolved now. She was started on broad- spectrum antibiotics. All cultures were negative except for the one blood culture, which seems to be a skin contaminant. She has had a previous splenectomy. Encapsulated organ would be a concern, although she has had no focus of infection. She has been fine for 48 hours. RECOMMENDATIONS: At this time from a GI standpoint I will follow her from a distance. She needs to see her energy efficiency engineer/gastrologist at [facility] on discharge to complete her evaluation there which seems to start in the past couple of weeks. At this time I see no strong recommendations for any further management regarding liver disease as she does not seem to have any decompensated hepatic function, I do not think her fever is related to her liver. or bliary system. . Job ID: [id number] EVELINE
[2018-08-21] MEDS: Vancomycin HCl 1 GM in Premix Bag 1 BAG IVPB SCH (02:12)
[2018-08-21] MEDS: Piperacillin/Tazobactam 3.375 GM in Sodium Chloride 0.9% 100 ML IVPB SCH ×4 (04:58→21:32)
[2018-08-21] MEDS: HumaLOG 300 UNITS/3 ML VIAL SC PRN ×3 (06:04→16:51)
[2018-08-21 06:25] LABS: Anion Gap 11 mmol/L (10-20); BUN (Urea Nitrogen) 16 mg/dL (7.0-18.7); Calc. Creatinine Clearance 40 mL/min (70-130); Calcium 8.9 mg/dL (7.8-10.44); Carbon Dioxide 18 mmol/L (22-29); Chloride 110 mmol/L (98-107); Estimated GFR-MDRD 34; Glucose 212 mg/dL (70-105); Sodium 135 mmol/L (136-145)
[2018-08-21 06:30] LABS: #Eosinphils 0.4 thou/uL (0.0-0.7); #Lymphocytes 2.6 thou/uL (1.20-3.40); #Monocytes 0.6 thou/uL (0.11-0.59); #Neutrophils 4.7 thou/uL (1.40-6.50); %Basophils 0.5 % (0.0-1.0); %Eosinophils 4.5 % (0.0-10.0); %Lymphocytes 31.3 % (21.0-51.0); %Monocytes 6.9 % (0.0-10.0); %Neutrophils 56.8 % (42.0-75.0); Hemoglobin 10.4 g/dL (12.0-16.0); Mean Corpuscular HGB CONC 32.8 g/dL (32.0-36.0); Mean Corpuscular Volume 97.7 fL (78.0-98.0); Mean Platelet Volume 8.4 fL (7.4-10.4); Platelet Count 592 thou/uL (130-400); RBC Distribution Width 12.3 % (11.5-14.5); Red Blood Cell (RBC) Count 3.24 mill/uL (4.20-5.40); White Blood Cell (WBC) Count 8.3 thou/uL (4.8-10.8)
[2018-08-21] MEDS: Ferrous Sulfate 325 MG TAB PO SCH (08:21)
[2018-08-21] MEDS: Heparin 5,000 UNITS/ML VIAL SC SCH ×3 (08:21→20:18)
[2018-08-21] MEDS: Amlodipine 5 MG TAB PO SCH (08:21)
[2018-08-21] MEDS: Calcium Carbonate 500 MG ChewTAB PO SCH (08:21)
--- NOTE | 2018-08-21 08:26 | CON ---
DATE OF CONSULTATION: REASON FOR CONSULTATION: Fever in setting of recent diagnosis of cirrhosis. HISTORY OF PRESENT ILLNESS: Ms. Becerra is a 43-year-old female who gets her care at [facility]. She states that for the past several months was having problems with swelling and bloating. She reported a remote history about 10 years ago of a splenectomy secondary to her spleen being large for which they could never found a reason for. Also, she has had a history of intermittent elevations of liver function tests. More recently, she had been at the hospital at [facility] and was told her imaging showed cirrhosis. She followed up with Gastrology there, had some testing done, was placed on diuretics. She has a followup there in a few weeks. The etiology was unclear, but she does have a family history of a mother who had cirrhosis. She does not drink alcohol and has never been a heavy drinker. She states that she has been diabetic for 18 years. When I asked about fatty liver as the possible cause of her cirrhosis, she was not familiar with that. It seems that she is in the early stages of her evaluation. In any event, she was doing well until Tuesday, when she felt just bit weak and a little bit sick, but had no specific symptoms such as cough, shortness of breath, nausea, vomiting, diarrhea, dysuria, frequency, or urgency. She just did not feel all that well and felt weak. On Tuesday, she felt a little worse. She went to lay down in the afternoon. Her was doing some of the housework and helping her out with things and then she wanted to go to the pharmacy to picker and packer some prescriptions. He took her there, but she began to have confusion in the car, seemed overly emotional, and then really seemed to be hallucinating somewhat. He brought her home and checked and she had a fever. He tried to get her up to take her to the hospital and she could get up, so he called EMS and they brought her to this hospital. Presently, she feels better. She was admitted yesterday and had blood cultures and urine cultures and was started on broad-spectrum antibiotics. She had a chest x-ray that was normal. She had a CAT scan performed without any IV contrast in the emergency room, which showed signs of previous cholecystectomy. Liver was felt to be unremarkable. The spleen was not visualized. There was some stranding in the peripancreatic fat in the region of the head and body, also in the mesenteric fat throughout the abdomen and pelvis. There is also diffuse wall thickening in the colon and bowel. Again, there was no IV contrast, this severely limited that study. She has been treated with antibiotics and observed with IV fluids and she is feeling better. She is eating okay now. PAST MEDICAL HISTORY: Notable for diabetes, hypertension, fibromyalgia, osteoporosis, and this new diagnosis of cirrhosis. PAST SURGICAL HISTORY: Tubal ligation, cholecystectomy, splenectomy which she states was performed as the spleen was big, and they wanted to make sure she did not have any cancer. Apparently, when that was removed, there was no real diagnosis made. She has had a hysterectomy as well. FAMILY HISTORY: Father with history of heart disease. Mother had cirrhosis, she states with a similar process, but they did not know the cause. SOCIAL HISTORY: The patient denies alcohol use. Does not smoke. She does not use drugs. REVIEW OF SYSTEMS: She has had some rashes on her back. She sees Nephrology and has seen Dr. Rojas for her eyes with regard to her diabetes. She denies any weight loss, fever, or chills. She states that she is not really aware of any previous issues with liver disease, except for her liver enzymes were up a little bit in the past. She denies any confusion episodes before. She denies any hematemesis, melena, or hematochezia. She had retinal detachment for which she saw Dr. Rojas in 12/2017. PHYSICAL EXAMINATION: She has some pigmented lesions in her skin and also quite burnt out vasculitis. There is no evidence of active inflammation. LABORATORY STUDIES: On admission, her white count was 21,000, hemoglobin 10.9, MCV was 96, and platelet count was 617. She has had elevated platelet counts up into 800s as far back as 2014. Today, her platelet count is 599 with white count of 16.2 and a hemoglobin of 10.4. Her ESR was 78. Sodium 136, potassium 4.2, chloride is 108, bicarb is 22, BUN is 21, creatinine is 1.58, glucose is 212, albumin is 3.3, total protein is 6.9, globulin is 3.6. CRP was 2.6. AST and ALT were 18 and 18 and bilirubin was 0.7. Alkaline phosphatase was 85. UDS negative. Urine showed protein, glucose, and trace blood. Negative for ketones. Respiratory virus panel negative. Blood cultures negative so far. Urine cultures preliminary negative. ASSESSMENT: 1. This is a 43-year-old female who came in with fever of unknown etiology. Blood cultures are pending. She was getting better. She had associated leukocytosis, but a nonfocal exam. She was confused. Apparently, she did not have any imaging of her brain or LP on admission, but she has gotten better nonetheless. 2. She carries a diagnosis of cirrhosis. Apparently, this was recently made at [facility]. There is no evidence of cirrhosis on her imaging here. There maybe some signs of some edema in the abdomen and I am not sure if that is what the basis of the diagnosis at [facility] was. The patient reports she has had no biopsy. Her liver function tests were normal. Her albumin is slight a bit low here with a protein of 6.9 and albumin 3.3. It is unclear to me if she has cirrhosis or not. I think if that is ongoing concern, she probably would also need a liver biopsy, which she can do with her primary physician at [facility] and/or gastrology team there. 3. Thrombocytosis. This does not appear to be new. It is unclear to me how much this is related to her previous splenectomy, but even splenectomy patients one does not typically see overt thrombocytosis like this, it goes back to 2011. RECOMMENDATIONS: 1. Ultrasound of abdomen with Dopplers of the liver to see if there are any signs of portal hypertension. 2. Hopefully, she will be able to go home soon. She can follow up with her gastrologist at [facility] with regard to the new diagnosis of cirrhosis. I did encourage her to ask for a biopsy to confirm that diagnosis, as it is not clear, but that is what is going on at least from the records we have available here. Job ID: [id number]
--- NOTE | 2018-08-21 16:52 | PDOC.PN ---
- Subjective Encounter Start Date: 08/21/18 Encounter Start Time: 16:50 Subjective: feels better but worsening abdominal distension -: no and pain or nausea/vomiting - Objective Resuscitation Status - Order Detail: 08/17/18 22:46 Resuscitation Status Routine Resuscitation Status: FULL: Full Resuscitation MAR Reviewed: Yes Vital Signs & Weight: Vital Signs (12 hours) Temp Pulse Resp BP Pulse Ox 08/21/18 12:00 98.1 F 83 16 136/84 96 08/21/18 08:21 80 08/21/18 08:00 98.1 F 80 14 124/75 97 Weight Weight 126 lb 11.2 oz I&O: 08/20/18 08/21/18 08/22/18 06:59 06:59 06:59 Intake Total 1760 2140 800 Balance 1760 2140 800 Result Diagrams: 08/21/18 05:51 08/21/18 05:51 Additional Labs: Accuchecks 08/21/18 08/21/18 08/20/18 12:09 04:26 19:56 POC Glucose 195 H 217 H 234 H Microbiology 08/18/18 10:54 Nasopharyngeal swab Respiratory Virus Panel (PCR) - Final 08/17/18 21:00 Venous blood - Right Hand Blood Culture - Final Coagulase Neg Staphylococcus 08/17/18 20:48 Urine clean catch Urine Culture - Final 08/20/18 10:07 Venous blood - Left Arm Blood Culture - Preliminary Specimen has been received and culture in progress. No Growth to date. 08/20/18 10:02 Venous blood - Right Arm Blood Culture - Preliminary Specimen has been received and culture in progress. No Growth to date. 08/17/18 21:02 Venous blood - Left Hand Blood Culture - Preliminary NO GROWTH AT 48 HOURS Laboratory Tests 09/09/16 08/17/18 08/17/18 23:31 21:00 21:00 WBC 21.5 H Creatinine 0.84 1.53 H Triglycerides Cholesterol Tumor Marker AFP Procalcitonin GREG Screen GREG Scrn Qualitative Anti-ds DNA IgG Ab Hepatitis A IgM Ab Hep Bs Antigen Hep B Core IgM Ab Hepatitis C Antibody 08/18/18 08/18/18 08/18/18 05:52 05:52 05:52 WBC 16.2 H Creatinine 1.58 H Triglycerides Cholesterol Tumor Marker AFP Procalcitonin GREG Screen Negative GREG Scrn Qualitative Negative Anti-ds DNA IgG Ab 2.5 Hepatitis A IgM Ab Hep Bs Antigen Hep B Core IgM Ab Hepatitis C Antibody 08/18/18 08/18/18 08/19/18 16:58 16:58 04:54 WBC Creatinine Triglycerides 154 H Cholesterol 194 Tumor Marker AFP Less than 2.0 Procalcitonin GREG Screen GREG Scrn Qualitative Anti-ds DNA IgG Ab Hepatitis A IgM Ab Non-Reactive Hep Bs Antigen Non-Reactive Hep B Core IgM Ab Non-Reactive Hepatitis C Antibody Non-Reactive 08/20/18 08/20/18 08/20/18 06:16 06:16 06:16 WBC 10.5 Creatinine 1.67 H Triglycerides Cholesterol Tumor Marker AFP Procalcitonin 0.09 GREG Screen GREG Scrn Qualitative Anti-ds DNA IgG Ab Hepatitis A IgM Ab Hep Bs Antigen Hep B Core IgM Ab Hepatitis C Antibody 08/21/18 08/21/18 05:51 05:51 WBC 8.3 Creatinine 1.68 H Triglycerides Cholesterol Tumor Marker AFP Procalcitonin GREG Screen GREG Scrn Qualitative Anti-ds DNA IgG Ab Hepatitis A IgM Ab Hep Bs Antigen Hep B Core IgM Ab Hepatitis C Antibody Phys Exam - Physical Examination Constitutional: NAD HEENT: PERRLA, moist MMs, sclera anicteric, oral pharynx no lesions Neck: no nodes, no JVD, supple, full ROM Respiratory: no wheezing, no rales, no rhonchi, clear to auscultation bilateral Cardiovascular: RRR, no significant murmur Gastrointestinal: soft, non-tender, positive bowel sounds distended Musculoskeletal: no edema, pulses present Neurological: non-focal, normal sensation, moves all 4 limbs Psychiatric: normal affect, A&O x 3 Skin: no rash Dx/Plan (1) Sepsis Code(s): A41.9 - SEPSIS, UNSPECIFIED ORGANISM Status: Acute Qualifiers: Sepsis type: sepsis due to unspecified organism Qualified Code(s): A41.9 - Sepsis, unspecified organism Comment: all Cx negative so far. (2) Cirrhosis Code(s): K74.60 - UNSPECIFIED CIRRHOSIS OF LIVER Status: Acute Qualifiers: Hepatic cirrhosis type: unspecified hepatic cirrhosis Ascites presence: unspecified Qualified Code(s): K74.60 - Unspecified cirrhosis of liver (3) CKD (chronic kidney disease) stage 2, GFR 60-89 ml/min Code(s): N18.2 - CHRONIC KIDNEY DISEASE, STAGE 2 (MILD) Status: Chronic (4) HTN (hypertension) Code(s): I10 - ESSENTIAL (PRIMARY) HYPERTENSION Status: Chronic Qualifiers: Hypertension type: essential hypertension Qualified Code(s): I10 - Essential (primary) hypertension (5) Diabetes type 2, controlled Code(s): E11.9 - TYPE 2 DIABETES MELLITUS WITHOUT COMPLICATIONS Status: Chronic Qualifiers: Diabetes mellitus senior living insulin use: without language path use Diabetes mellitus complication status: with unspecified complications Qualified Code(s) : E11.8 - Type 2 diabetes mellitus with unspecified complications - Plan continue antibiotics, DVT proph w/SCDs aaiting ID recs. all work up for cirrhosis negative so far -: monitor for worsening ascites -: restart aldactone & lasix.pt follows w at [facility]. -: HD stable -: Labs in am.monitor renal Fx as starting diuretics.losartan on hold * . Review of Systems - Review of Systems Constitutional: weakness, malaise. negative: fever, chills, sweats, other Respiratory: negative: Cough, Dry, Shortness of Breath, Hemoptysis, SOB with Excertion, Pleuritic Pain, Sputum, Wheezing Cardiovascular: negative: chest pain, palpitations, orthopnea, paroxysmal nocturnal dyspnea, edema, light headedness, other Gastrointestinal: Other. negative: Nausea, Vomiting, Abdominal Pain, Diarrhea, Constipation, Melena, Hematochezia Genitourinary: negative: Dysuria, Frequency, Incontinence, Hematuria, Retention , Other Musculoskeletal: negative: Neck Pain, Shoulder Pain, Arm Pain, Back Pain, Hand Pain, Leg Pain, Foot Pain, Other Skin: negative: Rash, Lesions, Wil, Bruising, Other Neurological: negative: Weakness, Numbness, Incoordination, Change in Speech, Confusion, Seizures, Other - Medications/Allergies Allergies/Adverse Reactions: Allergies Allergy/AdvReac Type Severity Reaction Status Date / Time No Known Allergies Allergy Verified 08/18/18 00:48 Medications: Current Medications Amlodipine Besylate (Norvasc) 5 mg PO DAILY [facility] Last Admin: 08/21/18 08:21 Dose: 5 mg Bisacodyl (Dulcolax) 10 mg PO DAILYPRN PRN PRN Reason: Constipation Calcium Carbonate (Tums) 1,000 mg PO DAILY [facility] Last Admin: 08/21/18 08:21 Dose: 1,000 mg Cholecalciferol (Vitamin D3) 2,000 units PO DAILY [facility] Last Admin: 08/21/18 08:21 Dose: 2,000 units Dextrose/Water (Dextrose 50%) 25 gm SLOW IVP PRN PRN PRN Reason: Hypoglycemia Diltiazem HCl (Cardizem Cd) 180 mg PO DAILY [facility] Last Admin: 08/21/18 08:21 Dose: 180 mg Ferrous Sulfate (Feosol) 325 mg PO DAILY [facility] Last Admin: 08/21/18 08:21 Dose: 325 mg Glucagon (Glucagon) 1 mg IM PRN PRN PRN Reason: Hypoglycemia Heparin Sodium (Porcine) (Heparin) 5,000 units SC TID [facility] Last Admin: 08/21/18 15:14 Dose: 5,000 units Dextrose/Water (D5w) 1,000 mls @ 0 mls/hr IV .Q0M PRN PRN Reason: Hypoglycemia Piperacillin Sod/Tazobactam (Sod 3.375 gm/ Sodium Chloride) 100 mls @ 200 mls/ hr IVPB 0400,1000,1600,2200 [facility] Last Admin: 08/21/18 15:15 Dose: 100 mls Vancomycin HCl 1 gm/ Device 200 mls @ 200 mls/hr IVPB Q24HR [facility] Last Admin: 08/21/18 02:12 Dose: 200 mls Insulin Human Lispro (Humalog) 0 units SC .MILD SLIDING SCALE PRN PRN Reason: Mild Correctional Scale Last Admin: 08/21/18 12:13 Dose: 2 unit Miscellaneous Medication (Pharmacy To Dose) 1 each IVPB PRN PRN PRN Reason: Pharmacy to dose Ondansetron HCl (Zofran) 4 mg IVP Q6H PRN PRN Reason: Nausea/Vomiting Last Admin: 08/18/18 08:47 Dose: 4 mg Senna/Docusate Sodium (Senokot S) 2 tab PO BIDPRN PRN PRN Reason: Constipation Last Admin: 08/19/18 12:30 Dose: 2 tab Sodium Chloride (Flush - Normal Saline) 10 ml IVF Q12HR [facility] Last Admin: 08/21/18 08:22 Dose: 10 ml Sodium Chloride (Flush - Normal Saline) 10 ml IVF PRN PRN PRN Reason: Saline Flush
[2018-08-21] MEDS ORDERED: Furosemide 20 MG TAB PO SCH (17:00)
[2018-08-21] MEDS ORDERED: Spironolactone 25 MG TAB PO SCH (17:00)
[2018-08-22 01:50] LABS: Vancomycin, Trough 25.4 ug/mL
[2018-08-22] MEDS ORDERED: Vancomycin HCl 750 MG in Sodium Chloride 0.9% 250 ML 250 ML IVPB SCH (02:00)
[2018-08-22] MEDS: Piperacillin/Tazobactam 3.375 GM in Sodium Chloride 0.9% 100 ML IVPB SCH ×2 (04:37→09:34)
[2018-08-22] MEDS: HumaLOG 300 UNITS/3 ML VIAL SC PRN ×2 (06:10→11:23)
[2018-08-22] MEDS: Calcium Carbonate 500 MG ChewTAB PO SCH (08:25)
[2018-08-22] MEDS: Amlodipine 5 MG TAB PO SCH (08:26)
[2018-08-22] MEDS: Ferrous Sulfate 325 MG TAB PO SCH (08:26)
[2018-08-22] MEDS: Heparin 5,000 UNITS/ML VIAL SC SCH (08:27)
[2018-08-22] MEDS ORDERED: Spironolactone 25 MG TAB PO SCH (09:00)
[2018-08-22] MEDS ORDERED: Furosemide 20 MG TAB PO SCH (09:00)
[2018-08-22 12:55] VITALS: BP 146/91; TEMP 98.1
--- NOTE | 2018-08-23 06:56 | PQF ---
S[employer] Spot Washer Crystal Reports Winform Viewer APOLONIA CORTÉS JANKI DAHL MD [id number] [id number] CLINICAL DOCUMENTATION CLARIFICATION FORM: POST DISCHARGE Addendum to original discharge summary date: ____ Late entry note date: __ DATE: 08/23/2018 ATTN: Janki Mcdaniel Please exercise your independent, professional judgment in responding to the clarification form. Clinical indicators are provided on the bottom of this form for your review Can you please specify whether Pneumonia is ruled in or ruled out during this encounter? Pneumonia [ ] Ruled in diagnosis [ ] Continue to treat [ ] Resolved [ X ] Ruled out diagnosis [ ] Cannot rule out diagnosis [ ] Other diagnosis please specify: [ ] Unable to determine In addition, please specify: Present on Admission (POA): [ ] Yes [ ] No [ X ] Unable to determine For continuity of documentation, please document condition throughout progress notes and discharge summary. Thank You. CLINICAL INDICATORS H and P pg.1 08/17/18- Fever and generalized weakness H and P pg.2 08/17/18- Laboratory Result: WBC of 21.5 H and P pg.2 08/17/18- Sepsis, unclear etiology H and P pg.2 08/17/18- Leukocytosis, most likely secondary to underlying infection Chest X-ray 08/17/18- Findings:: Lungs are clear PN pg.1 08/19/18 Dr. Perrin- One of two blood cultures positive for coagulase- negative Staphylococccus. It is unclear if that may be a contaminant. Hospitalist PN pg.3 08/20/18 Dr. Pérez- Right upper lobe pneumonia comment: : community acquired pneumonia, likely pneumococcus RISK FACTORS Sepsis- Hospitalist PN pg.5 Dr. Jones Leukocytosis- H and P pg.2 08/17/18 TREATMENTS IV fluids- JUN 06 Chest X-ray- 08/17 Infectious consult- Dr. Perrin 08/18 Piperacillin (zosyn) 3.375mg- IV JUN 06 Vancomycin 1gm IV Q24H- JUN 06 (This form is maintained as a part of the permanent medical record) 2014 [employer]. All Rights Reserved Ron [email or web address] [not provided] MTDD
--- NOTE | 2018-08-23 10:44 | DIS ---
DATE OF ADMISSION: 08/17/2018 DATE OF DISCHARGE: 08/22/2018 CONDITION: At the time of discharge, stable and improved. DISCHARGE DISPOSITION: Home. PRIMARY CARE PHYSICIAN: Letty Esquivel. PRIMARY RECOVERY COORDINATOR: Dr. Childs at [facility]. DISCHARGE DIAGNOSES: 1. Fever and tachycardia. Sepsis ruled out. 2. History of unspecified type of liver cirrhosis under the care of [facility] steam distribution supervisor. 3. Chronic kidney disease, stage 2, stable. 4. Hypertension. 5. Diabetes mellitus. DISCHARGE MEDICATIONS: Resume home medications as follows; 1. Aldactone 25 mg daily. 2. Lasix 20 mg daily. 3. Diltiazem 180 mg daily. 4. Amlodipine 5 mg daily. 5. Fosamax 70 mg every 7 days. 6. Calcium, multivitamin, etc. 7. Estradiol patch every 7 days. 8. Gabapentin 100 mg t.i.d. 9. NovoLog sliding scale insulin. 10. Insulin glargine 30 units at bedtime. 11. Losartan 100 mg daily. 12. Ferrous sulfate 325 mg daily. PROCEDURES DONE IN THE HOSPITAL: 1. CT scan of the abdomen and pelvis upon presentation, which shows diffuse stranding of the mesenteric fat and small volume free fluid within the abdomen and pelvis. Otherwise, no acute changes noticed. 2. Abdominal ultrasound, which shows heterogeneous liver and small volume of ascites. Normal flow is seen in the hepatic and portal veins. IN-HOUSE CONSULTATION: Gastroenterology, Dr. Perrin. HISTORY OF PRESENTING ILLNESS: Ms. Becerra is a 43-year-old female, with history of diabetes, hypertension, with recent diagnosis of cirrhosis made at [facility], who presented to the emergency room with complaints of fever and generalized weakness, complained of feeling tired and more confused according to her with subjective fever. Upon presentation to the ER, she had a fever of 101 and was found to be tachycardic. She was given some broad-spectrum IV antibiotic, IV fluids, and was admitted to medicine floor for further evaluation. Her chest x-ray was unremarkable. CT of the abdomen and pelvis showed diffuse stranding of the mesenteric fat. Liver enzymes were unremarkable. With regard to her history of recent diagnosis of cirrhosis, Gastroenterology was consulted. Please note that at the time of admission, her WBC was elevated to 21,000 with normal neutrophil and band count. Her creatinine upon admission was 1.53 as well. Please see admission history and physical dictated by Dr. Vazquez on 08/18/2018 for full details. HOSPITAL COURSE: Dr. Perrin saw the patient and an abdominal ultrasound was done. It did not show any specific cirrhosis, just heterogeneous liver. Multitude of testing was done. She had blood culture x2, 1st on 08/17/2018 and then on 08/20/2018 as well as urine culture and respiratory viral panel. All of these tests remained negative. The patient did not have any fever in the hospital and remained afebrile throughout the hospital course. Her leukocytosis improved from 21,000 to . She was treated with vancomycin as well as Zosyn in the hospital. According to Dr. Perrin, this was not a case of infection associated with her liver issues. He recommended continuation of followup at [facility] with her own steam distribution supervisor. She does have history of splenectomy, but there was no local focus of infection found. Multitude of tests were sent including GREG panel which was negative. Acute hepatitis panel was also sent, which was negative. Her drug screen was negative as well and her alpha-fetoprotein was within normal limit at 2.0. Her lactic acid was 1.0 upon admission. Her creatinine at the time of discharge was 1.68. Procalcitonin was also within normal limits. As of this morning, the patient is back to her baseline. She did have some abdominal distention as her diuretics were held upon admission. We restarted those and she had significant improvement in her abdominal distention and this morning on my physical exam, her abdomen is soft and flat and without any fluid wave. Her vital signs were stable with blood pressure 146/91. Chest was clear to auscultation bilaterally. Rate and rhythm is regular. She will be discharged. No antibiotics are prescribed upon discharge as there is no source of infection found. Total time spent in the discharge, 32 minutes. Job ID: [id number]
== END 2018-08-22 13:14 | disposition home or self-care (01) | DRG 864 ==
LOC: ERS 20:29 → T4-B 23:00
PROVIDERS: ADMIT Internal Medicine; ATTEND Internal Medicine
DX: R50.9 Fever, unspecified (principal); N17.9 Acute kidney failure, unspecified; R00.0 Tachycardia, unspecified; N18.2 Chronic kidney disease, stage 2 (mild); I12.9 Hypertensive chronic kidney disease with stage 1 through stage 4 chronic kidney disease, or unspecified chronic kidney disease; D63.1 Anemia in chronic kidney disease; K74.60 Unspecified cirrhosis of liver; D47.3 Essential (hemorrhagic) thrombocythemia; E11.22 Type 2 diabetes mellitus with diabetic chronic kidney disease; M79.7 Fibromyalgia; M81.0 Age-related osteoporosis without current pathological fracture; Z98.51 Tubal ligation status; Z90.710 Acquired absence of both cervix and uterus; Z90.49 Acquired absence of other specified parts of digestive tract; Z79.899 Other long term (current) drug therapy; Z79.4 Long term (current) use of insulin
CPT/HCPCS: 36415; 36416; 71045; 74176; 76705; 80048; 80053; 80061; 80074; 80202; 80306; 81003; 81015; 82105; 83516; 83605; 84145; 85025; 85610; 85652; 85730; 86038; 86140; 86225; 87040; 87086; 87149; 87633; 96361; 96365; J1644; J2405; J2543; J3370; J3490; J7050

== ENCOUNTER 2018-11-30 07:27 | Day surgery (SDC) | payer OTHER ==
[2018-11-29 10:35] VITALS: BMI 22.1
[~2018-11-30 07:27] MED LIST changes: -Cyclopentolate 1% Opth Drop 2 ML BOT FS SCH; +EPINEPHrine 0.3 MG, Dextrose 50% 3 ML in Ophthalmic Irrigation Solution 500 ML IVP SCH; -Fluorouracil 100 MG, EPINEPHrine 0.3 MG, Dextrose 50% 3 ML in Ophthalmic Irrigation Sol... FS SCH; -Phenylephrine 2.5% Ophth Soln 5 ML BOT FS SCH
[2018-11-30] MEDS ORDERED: PROPOFOL 20 ML ONE (07:51)
[2018-11-30] MEDS ORDERED: Fentanyl 100 MCG/2 ML VIAL ONE (07:51)
[2018-11-30] MEDS ORDERED: Midazolam HCl 2 mg/2 ml Vial ONE (07:51)
[2018-11-30] MEDS ORDERED: Phenylephrine 2.5% Ophth Soln 5 ML BOT ONE (08:08)
[2018-11-30] MEDS ORDERED: Cyclopentolate 1% Opth Drop 2 ML BOT ONE (08:08)
[2018-11-30] MEDS ORDERED: Triamcinolone 40 MG/ML VIAL ONE (10:15)
[2018-11-30] MEDS ORDERED: CEFAZOLIN 1 GM VIAL ONE (10:15)
[2018-11-30] MEDS ORDERED: Lidocaine 1% PF 5 ML VIAL ONE (10:15)
[2018-11-30] MEDS ORDERED: PROPOFOL 200 MG/20 ML VIAL ONE (10:15)
[2018-11-30] MEDS ORDERED: Bupivacaine 10 ML VIAL ONE (10:15)
[2018-11-30] MEDS ORDERED: Lidocaine 4% PF 5 ML AMP ONE (10:15)
--- NOTE | 2018-11-30 14:10 | OP ---
DATE OF PROCEDURE: 11/30/2018 PRINCIPAL PREOPERATIVE DIAGNOSES: 1. Macula-off tractional retinal detachment, left eye. 2. Proliferative diabetic retinopathy, left eye. POSTOPERATIVE DIAGNOSES: 1. Macula-off tractional retinal detachment, left eye. 2. Proliferative diabetic retinopathy, left eye. PROCEDURES PERFORMED: 1. 25-gauge pars plana vitrectomy, left eye. 2. Tractional retinal detachment repair, left eye. 3. Endolaser panretinal photocoagulation, left eye. 4. Air-fluid exchange. 5. Silicone oil fill, left eye. ESTIMATED BLOOD LOSS: None. SPECIMENS REMOVED: None. COMPLICATIONS: None. ANESTHESIA: MAC with retrobulbar block. DESCRIPTION OF PROCEDURE: The patient was identified in the preoperative holding area, where the correct eye being the left eye was marked for surgery. The patient was taken to the operating room, where MAC anesthesia was induced. A retrobulbar block was administered to the left eye. The block consisted of 1:1 ratio of 4% lidocaine and 0.75% Marcaine. A total of 5 mL was administered. The left eye was then prepped and draped in the usual sterile ophthalmic fashion for surgery. A wire lid speculum was placed. A standard 25-gauge pars plana vitrectomy platform was fashioned with trocars placed approximately 4 mm from the limbus. The infusion was noted to be within the vitreous cavity prior to being turned on to an infusion pressure of 30 mmHg. A light pipe Micro vitrector was introduced into the eye under visualization with a BIOM viewing system. A significant macula-off tractional retinal detachment was noted to extend beyond the superior temporal arcades approximately 3 disc diameters. Pre-retinal fibrosis was noted on the superior and inferior temporal arcades as well as nasally. The Micro vitrector was used to perform a complete core and peripheral shave vitrectomy. Attention was subsequently turned to the tractional retinal detachment repair. Using the Micro vitrector, the fibrosis was segmented to full and safest extent possible. Subsequently, the MaxGrip forceps and pik fiber optic were used to delaminate and segment the fibrosis from the retina. The Micro vitrector was used to remove any additional fibrosis. Following completion of vitrectomy and tractional retinal detachment repair, no defects were noted. A superotemporal drainage retinotomy was created with endocautery. This was subsequently opened with a flute needle. An air-fluid exchange was performed to allow for complete flattening of the retina. The Endolaser was used to provide panretinal photocoagulation to the periphery in the area that was not already lasered. The flute needle was re-introduced into the eye once again to drain any residual subretinal fluid. A complete silicone oil fill was subsequently achieved. LASER TO THE DRAINAGE RETINOTOMY SITE WILL NEED TO BE PERFORMED PRIOR TO SILICONE OIL REMOVAL. The cannulas were sequentially removed, and all sclerotomies were sutured with 8 -0 Vicryl suture. Following suturing, all sclerotomies were noted to be watertight. Subconjunctival Ancef and Kenalog were injected. The patient tolerated the procedure well and was taken to the outpatient recovery area in good condition. Job ID: [id number] [facility]
== END 2018-11-30 12:40 | disposition home or self-care (01) ==
LOC: SDC 07:27
PROVIDERS: ATTEND Ophthalmology Retina Specialist
PROC: 08QF3ZZ Repair Left Retina, Percutaneous Approach (ICD-10-PCS; principal; 2018-11-30)
PROC: 08B53ZZ Excision of Left Vitreous, Percutaneous Approach (ICD-10-PCS; principal; 2018-11-30)
DX: E11.3532 Type 2 diabetes mellitus with proliferative diabetic retinopathy with traction retinal detachment not involving the macula, left eye (principal)
CPT/HCPCS: 36416; C1814; J0171; J0690; J2001; J2250; J2704; J3010; J3301; J3490